=== PATIENT | male | born 1985 | race Caucasian/White ===

== ENCOUNTER 2024-03-01 10:37 | Emergency (ER) | payer OTHER ==
[~2024-03-01] VITALS: Ht 182.9 cm; Wt 88.8 kg
[2024-03-01 10:38] VITALS: BP 132/82; TEMP 97.2; O2SAT 100
[2024-03-01] MEDS ORDERED: METH-1164 PO (10:50)
[2024-03-01] MEDS ORDERED: CYCL5TAB PO (10:50)
[2024-03-01 12:31] LABS: BASO % 0.2 % (0.0-1.0); EOS % 0.3 % (0.0-3.0); HEMATOCRIT 41.8 % (42.0-52.0); LYMPH # 1.8 10^3/uL (1.5-5.0); LYMPH % 14.3 % (24.0-44.0); MEAN CORPUSCULAR HEMOGLOBIN 32.2 pg (27.0-33.0); MEAN CORPUSCULAR HGB CONC 35.9 g/dl (32.0-36.5); MEAN CORPUSCULAR VOLUME 89.7 fl (80.0-96.0); MONO # 0.8 10^3/uL (0.0-0.8); MONO % 6.3 % (2.0-8.0); NEUTROPHILS % 78.6 % (36.0-66.0); PLATELET COUNT, AUTOMATED 268 10^3/uL (150-450); RED BLOOD COUNT 4.66 10^6/uL (4.30-6.10); WHITE BLOOD COUNT 12.8 10^3/uL (4.0-10.0)
[2024-03-01 12:57] LABS: LIPASE 35 U/L (12-53)
[2024-03-01 12:59] LABS: ALBUMIN 4.5 G/DL (3.2-5.2); ALKALINE PHOSPHATASE 74 U/L (46-116); ALT/SGPT 40 U/L (7.0-40); AST/SGOT 22 U/L (<34); BILIRUBIN,DIRECT 0.4 MG/DL (<0.4); BILIRUBIN,TOTAL 1.2 MG/DL (0.3-1.2); BLOOD UREA NITROGEN 14 MG/DL (9-23); CALCIUM LEVEL 9.3 MG/DL (8.5-10.1); CARBON DIOXIDE LEVEL 30 MMOL/L (20-31); CHLORIDE LEVEL 104 MMOL/L (98-107); CREATININE FOR GFR 1.14 MG/DL (0.70-1.30); GLOMERULAR FILTRATION RATE > 60.0 (>60); GLUCOSE, FASTING 82 MG/DL (60-100); POTASSIUM SERUM 4.1 MMOL/L (3.5-5.1); SODIUM LEVEL 136 MMOL/L (136-145); TOTAL PROTEIN 7.4 G/DL (5.7-8.2)
== END 2024-03-01 14:25 | disposition left against medical advice (07) ==
LOC: M ED 10:37
DX: Z53.21 Procedure and treatment not carried out due to patient leaving prior to being seen by health care provider (principal)

== ENCOUNTER 2025-05-23 16:40 | Emergency (ER) | payer OTHER ==
[~2025-05-23] VITALS: Ht 182.9 cm; Wt 100.5 kg
[~2025-05-23 16:40] MED LIST: CYCL5TAB4 PO; METH-1164 PO
[2025-05-23] MEDS ORDERED: CYCL-707 PO (17:29)
[2025-05-23] MEDS ORDERED: IBUP600T42 PO (17:29)
[2025-05-23] MEDS: KETOROLAC 60 MG/2 ML VIAL IM ONE (17:32)
[2025-05-23 17:46] VITALS: BP 132/74; TEMP 97.8; O2SAT 100
== END 2025-05-23 17:49 | disposition home or self-care (01) ==
LOC: M ED 16:40
DX: M54.50 Low back pain, unspecified (principal); Z79.1 Long term (current) use of non-steroidal anti-inflammatories (NSAID); Z79.899 Other long term (current) drug therapy
CPT/HCPCS: 96372; 99283; J1885